=== PATIENT | female | born 1945 | race Caucasian/White ===

== ENCOUNTER → 2019-01-15 | Outpatient (CLI) | payer MEDICARE ==
[~2019-01-15] MED LIST: ACET-907 PO; ALEV220T22 PO; AMLO5TAB6 PO; ASPI81TA85 PO; ATOR1TAB21 PO; FISH1000 PO; HYDR25TAB PO; LISI10TA4 PO; MULTCAP PO; VITAD1000T PO
--- NOTE | 2019-01-15 08:31 | REP ---
Clinical: Preoperative assessment . Comparison: None . Technique: PA and lateral. Findings: The mediastinum and cardiac silhouette are normal. The lung aldrich are clear and without acute consolidation, effusion, or pneumothorax. The skeletal structures are intact and normal. Impression: 1. No acute cardiopulmonary process. Electronically Signed by Rah Mckinney MD 01/15/2019 08:22 A
[2019-01-15 08:53] LABS: HEMATOCRIT 41.4 % (36.0-47.0); HEMOGLOBIN 13.8 g/dl (12.0-15.5); MEAN CORPUSCULAR HEMOGLOBIN 30.1 pg (27.0-33.0); MEAN CORPUSCULAR HGB CONC 33.3 g/dl (32.0-36.5); MEAN CORPUSCULAR VOLUME 90.2 fl (80.0-96.0); PLATELET COUNT, AUTOMATED 238 10^3/uL (150-450); RED BLOOD COUNT 4.59 10^6/uL (4.00-5.40); WHITE BLOOD COUNT 6.6 10^3/uL (4.0-10.0)
[2019-01-15 08:58] LABS: INR 0.98; PROTHROMBIN TIME 12.7 SECONDS (11.8-14.0)
[2019-01-15 09:17] LABS: ALBUMIN 4.1 GM/DL (3.2-5.2); ALT/SGPT 22 U/L (12-78); BILIRUBIN,TOTAL 0.7 MG/DL (0.2-1.0); BLOOD UREA NITROGEN 15 MG/DL (7-18); CALCIUM LEVEL 9.6 MG/DL (8.8-10.2); CARBON DIOXIDE LEVEL 28 MEQ/L (21-32); CHLORIDE LEVEL 106 MEQ/L (98-107); CREATININE FOR GFR 0.93 MG/DL (0.55-1.30); GLOMERULAR FILTRATION RATE > 60.0 (>39); GLUCOSE, FASTING 92 MG/DL (70-100); SODIUM LEVEL 142 MEQ/L (136-145); TOTAL PROTEIN 7.1 GM/DL (6.4-8.2)
[2019-01-15 09:26] LABS: ERYTHROCYTE SEDIMENTATION RATE 5 mm/hr (0-30)
--- NOTE | 2019-01-15 11:20 | ECGEPIP ---
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
== END ==
LOC: M LAB 07:45
PROVIDERS: ATTEND Orthopaedic Surgery
DX: Z01.818 Encounter for other preprocedural examination (principal); M17.11 Unilateral primary osteoarthritis, right knee

== ENCOUNTER → 2019-03-26 | Outpatient (CLI) | payer MEDICARE ==
[~2019-03-26] MED LIST changes: +CHOL100029 PO; -VITAD1000T PO
[2019-03-26 08:34] LABS: HEMATOCRIT 42.2 % (36.0-47.0); HEMOGLOBIN 14.2 g/dl (12.0-15.5); MEAN CORPUSCULAR HEMOGLOBIN 30.2 pg (27.0-33.0); MEAN CORPUSCULAR HGB CONC 33.6 g/dl (32.0-36.5); MEAN CORPUSCULAR VOLUME 89.8 fl (80.0-96.0); PLATELET COUNT, AUTOMATED 247 10^3/uL (150-450)
[2019-03-26 08:46] LABS: ALBUMIN 4.3 GM/DL (3.2-5.2); BILIRUBIN,TOTAL 0.8 MG/DL (0.2-1.0); CALCIUM LEVEL 10.4 MG/DL (8.8-10.2); CREATININE FOR GFR 0.98 MG/DL (0.55-1.30); GLOMERULAR FILTRATION RATE 59.2 (>39); INR 0.94; POTASSIUM SERUM 4.3 MEQ/L (3.5-5.1); PROTHROMBIN TIME 12.3 SECONDS (11.8-14.0); TOTAL PROTEIN 6.7 GM/DL (6.4-8.2)
[2019-03-26 08:51] LABS: ERYTHROCYTE SEDIMENTATION RATE 4 mm/hr (0-30)
== END ==
LOC: M LAB 07:47
PROVIDERS: ATTEND Orthopaedic Surgery
DX: M17.11 Unilateral primary osteoarthritis, right knee (principal); Z79.82 Long term (current) use of aspirin

== ENCOUNTER 2019-04-15 07:21 | Inpatient (IN) | payer MEDICARE ==
--- NOTE | 2019-04-06 18:27 | HPE ---
DATE OF ADMISSION: 04/15/2019 ATTENDING PHYSICIAN: Dr. Puneet Hinkle CHIEF COMPLAINT: Right knee pain and stiffness. HISTORY: This is a pleasant 73-year-old female patient with progressively worsening right knee pain and stiffness that has failed to improve with conservative management. This affects her activities of daily living and she has consented for a right total knee arthroplasty with Dr. Puneet Hinkle. She had unfortunately had to cancel her surgery previously secondary to needing cardiac clearance. She reports that she has since seen Dr. Bliss and had a negative stress test and received clearance from him. ALLERGIES: No known drug allergies. CURRENT MEDICATIONS: - amlodipine 5 mg one by mouth daily - aspirin 81 mg one by mouth daily - atorvastatin 20 mg one by mouth daily - fish oil 1000 mg one by mouth daily - vitamin D3 2000 units one by mouth daily - Flonase two sprays per nostril daily - hydrochlorothiazide 25 mg one by mouth daily - lisinopril 10 mg one by mouth daily - multivitamin one by mouth daily - Shingrix vaccination - Zyrtec 10 mg one by mouth daily PAST MEDICAL HISTORY: 1. Allergic rhinitis. 2. Aortic stenosis. 3. Coronary artery stenosis. 4. Bilateral cataracts. 5. Right-sided congestive heart failure (CHF). 6. Hyperlipidemia. 7. Hypertension. 8. Obesity. 9. Bilateral knee osteoarthritis. 10. Osteoporosis. 11. Retinal vein occlusion. PAST SURGICAL HISTORY: Noncontributory. SOCIAL HISTORY: The patient does not smoke, has never, and does not use alcohol. FAMILY HISTORY: Father: Cancer. Mother: Hypertension and hyperlipidemia. REVIEW OF SYSTEMS: Denies fever, chills, chest pain, shortness of breath, nausea, vomiting, diarrhea. Denies any recent upper respiratory or urinary tract infection symptoms. Does report pain in the right knee. PHYSICAL EXAMINATION: VITAL SIGNS: Weight 175.2, height 5 feet, 3 inches, temperature 98.4, pulse 79, respirations 12, blood pressure 140/70. Normocephalic, atraumatic. Neck is supple and nontender with no lymphadenopathy or jugular venous distention (JVD). S1 and S2 auscultated. LUNGS: Clear to auscultation bilaterally with no wheezes, rales, rhonchi. ABDOMEN: Soft, nontender. Examination of the right knee reveals intact overlying skin, intact range of motion, tenderness to palpation about the medial aspect. The right lower extremity is well-perfused and has intact neurovascular status. LABORATORY DATA: White count 8, red count 4.7, hemoglobin 14.2, hematocrit 42.2. BUN 20, creatinine 0.98, PT 12.3, INR 0.94. Chest x-ray with no acute cardiopulmonary process. EKG: Sinus rhythm. Medical optimization performed by Dr. Nance, reviewed today on chart. Cardiac optimization and risk stratification performed by Dr. Fischer and reviewed today on chart. IMPRESSION: Symptomatic right knee degenerative changes. PLAN: Consented for a right total knee arthroplasty with Dr. Puneet Hinkle.
[2019-04-15] VITALS (7 sets, daily range): BP systolic 132–148; BP diastolic 68–77
[~2019-04-15] VITALS: Ht 157.5 cm; Wt 78.0 kg
[~2019-04-15 07:21] MED LIST changes: +LR 1,000 ML IV ONE; +ceFAZolin SOD 2 GM in IV 1 EA IV ONE
[2019-04-15] MEDS ORDERED: fentaNYL 100 MCG/2 ML INJECTION (J3010) As Ordered ONE ×2 (08:41→08:55)
[2019-04-15] MEDS ORDERED: MIDAZOLAM INJ 2 MG/2 ML VIAL (J2250) As Ordered ONE ×3 (08:41→10:14)
[2019-04-15] MEDS ORDERED: ONDANSETRON 4MG/2ML VIAL (J2405) As Ordered ONE (08:55)
[2019-04-15] MEDS ORDERED: LIDOCAINE 2% INJ 100 MG/5 ML SDV (FOR ANES.) As Ordered ONE (08:55)
[2019-04-15] MEDS ORDERED: dexameTHASONE 4 MG/ML 1ML VIAL (J1100) As Ordered ONE (08:55)
[2019-04-15] MEDS ORDERED: propofoL 500 MG/50 ML VIAL As Ordered ONE (08:55)
[2019-04-15] MEDS ORDERED: fentaNYL 100 MCG/2 ML INJECTION (J3010) IV ONE (09:30)
[2019-04-15] MEDS ORDERED: MIDAZOLAM INJ 2 MG/2 ML VIAL (J2250) IV ONE (09:30)
--- NOTE | 2019-04-15 09:34 | IPN ---
DATE: 04/15/2019 Patient seen and examined. She wished to go ahead with a right knee arthroplasty. She understands the nature of this, the risks of bleeding, infection, damage to nerves, vessels, persistent pain, wear loosening, blood clots, medical problem, , among others. Plan to proceed with a right knee arthroplasty. Preoperative clearance was obtained.
[2019-04-15] MEDS ORDERED: TRANEXAMIC ACID 100 MG/ML 10ML VIAL As Ordered ONE (09:51)
[2019-04-15] MEDS ORDERED: BUPIVACAINE LIPOSOME/PF 1.3% 20ML VIAL (13.3MG/ML)(EXPAREL)(C9290 PER1MG) As Ordered ONE (09:52)
[2019-04-15] MEDS ORDERED: EPINEPHrine INJ 1 MG/ML 1ML VIAL As Ordered ONE (09:52)
[2019-04-15] MEDS ORDERED: ceFAZolin 1GM INJ (J0690 PER 500MG) As Ordered ONE (09:52)
[2019-04-15] MEDS ORDERED: ROPIvacaine 0.5% 30 ML INJECTION (J2795 PER 1MG) ONE (11:04)
[2019-04-15] MEDS ORDERED: dexameTHASONE 10 MG/1 ML VIAL PRES.FREE (J1100) ONE (11:04)
[2019-04-15] MEDS ORDERED: PERCOCET 5MG/325MG TAB As Ordered ONE (12:53)
[2019-04-15] MEDS ORDERED: fentaNYL 100 MCG/2 ML INJECTION (J3010) IV PRN (13:00)
[2019-04-15] MEDS ORDERED: LR 1,000 ML IV SCH ×2 (13:00→14:00)
[2019-04-15] MEDS ORDERED: ONDANSETRON 4MG/2ML VIAL (J2405) IV PRN ×2 (13:00→14:00)
[2019-04-15] MEDS ORDERED: PERCOCET 5MG/325MG TAB PO PRN (13:00)
--- NOTE | 2019-04-15 13:02 | REP ---
RIGHT KNEE, TWO VIEWS: Two views of the right knee performed. There is a total knee prosthesis in good position. Osseous structures are intact and well aligned. Metallic skin haven are seen anteriorly. Electronically Signed by Guido Prasad MD 04/15/2019 05:55 P
--- NOTE | 2019-04-15 13:03 | RO ---
DATE OF PROCEDURE: 04/15/2019 PREOPERATIVE DIAGNOSIS: Right knee osteoarthritis. POSTOPERATIVE DIAGNOSIS: Right knee osteoarthritis. PROCEDURE: Right total knee arthroplasty using Attune rotating platform posterior stabilized size 5 femur, size 5 tibia, 10 mm thick polyethylene, 35 patellar button. SURGEON: Puneet Hinkle MD MOLDER APPRENTICE: ERICA Coreas ANESTHESIA: Spinal. ESTIMATED BLOOD LOSS (EBL): Less than 50. COMPLICATIONS: None. INDICATIONS: This is a 73-year-old woman who has had gradually worsening right knee pain. She wished to go ahead with surgical treatment. She understood the nature of this, the risks associated with it. DESCRIPTION OF PROCEDURE: The patient was taken to the operating room and placed in supine position after spinal anesthesia was induced. The right lower extremity was prepped and draped in the usual sterile fashion. Time-out was performed. Tourniquet was inflated and a longitudinal incision was made over the anterior aspect of the right knee. A medial parapatellar arthrotomy was performed per routine. Everted the patella. Flexed the knee up. Removed some osteophytes from the femur. Used the canal initiating reamer followed by the intramedullary guide set at 5 degrees of valgus and a 9 mm cut. This fit very nicely on the condyles. This was pinned in place and the distal femoral cut was made protecting soft tissues. I then sized the femur having freed up soft tissue on the anterior aspect of the distal femur and sized it to be a 5. The drill holes were placed in the end of the femur. It was noted that her bone was quite soft throughout the procedure. The size 5 cutting block was then secured. The remaining cuts were made in the usual fashion. I then prepared the tibial surface. Tibial retractors were placed. The tibial alignment guide was then secured to 4 mm off the medial side, which was the low side. It was dialed in the appropriate amount of valgus and posterior slope. This was pinned in place and the proximal tibia cut was made. I then used the cutting block for this box as I anticipated using a posterior stabilizer due to her significant arthritis and her subluxation of her tibia on her femur, and the cutting block was secured. The remaining three cuts were made and the bone was removed along with any remaining posterior cruciate ligament (PCL) with cautery. Care was taken to protect soft tissues. I then used the color printer operator to remove soft tissue and osteophytes from either side of the knee and a spacer block was then used for a trial and was choosing between the size 10 and 12, but was most happy with the size 10. I then prepared the tibial surface. A size 5 cutting tray was then placed, secured, drilled, broached and the trial components were used, and once I placed the trial components I was much more pleased with the size 10 polyethylene. She had excellent stability in flexion and extension. Excellent alignment noted and the components fit very well. I then freehand cut the patella removing about 6 mm of bone because her patella was relatively thin. Drilled holes for a 35 button and placed the trial button. I did have to do a mild lateral release due to some subtle tracking issues. Drill holes were placed in the end of the femur. Again, I was very pleased with soft tissue balance and range of motion of the knee. The trial components removed. I placed Exparel in the deep tissues, irrigated copiously and cemented on the tibial surface after drying carefully. Cemented in the femoral component and the polyethylene was then inserted and brought the knee out in extension. I made sure all the excess bone cement was removed. I then cemented on the patella, held in place with a clamp, removed excess bone cement. Irrigated again copiously. Placed the tranexamic acid (TXA) deep in the wound. Once the cement had hardened, I removed the patellar clamp and we closed the deep layer with interrupted #1 Vicryl suture and running Stratafix suture. Excellent watertight closure was noted. I then again irrigated, closed the subcu with #2-0 Vicryl and the skin with haven. Tourniquet was deflated, and she was taken to recovery room in stable condition. There were no known complications. The plan will be routine postop. The magistrate assistant was instrumental in holding retractors and assisting in flex and extending the knee for exposure, assisting in mixing the bone cement, assisting in wound closure. The bone cement had been mixed near the end of the procedure by the magistrate assistant in the usual fashion.
[2019-04-15] MEDS ORDERED: ACETAMINOPHEN TAB 650MG DOSE (2X325MG) PO PRN (14:00)
[2019-04-15] MEDS ORDERED: FLEET ENEMA PR PRN (14:00)
[2019-04-15] MEDS ORDERED: MORPHINE 4 MG/ML 1ML VIAL/SYRINGE (J2270) IV PRN ×2 (14:00)
--- NOTE | 2019-04-15 14:21 | CR.PDOC ---
General Date of Consultation: Apr 15, 2019 Referring Provider: Puneet Hinkle Attending Physician: OLE AQUINO MD Consultation REASON FOR CONSULTATION/CHIEF COMPLAINT: Hypertensive management, status post right knee arthroplasty HISTORY OF PRESENT ILLNESS: Patient is a 73-year-old female with past medical history significant for aortic stenosis, coronary artery disease, congestive heart failure with diastolic dysfunction, hypertension, and hyperlipidemia who presented for an elective right knee arthroplasty. Patient had been treated conservatively outpatient for right knee pain. However, had continued pain and was seen for right knee arthroplasty today. Patient is currently status post right knee arthroplasty. She states that her pain is well-controlled. There were no adverse events reported during her surgery. The patient's blood pressure remained normotensive. She states that she has a history of hypertension as well as aortic stenosis. Patient denies any history of obstructive sleep apnea. She states that she is compliant with her medications. She currently denies any chest pain, shortness of breath, nausea, vomiting, diarrhea or constipation. ALLERGIES: Please see below. HOME MEDICATIONS: Please see below. PAST MEDICAL HISTORY: 1., Hypertension. 2., Aortic stenosis. 3. Coronary artery disease. 4. Bilateral cataracts. 5. Congestive heart failure with diastolic dysfunction. 6. Hyperlipidemia. Unclear whether pure or mixed. 7. Obesity. 8. Bilateral knee osteoarthritis 9. Osteoporosis. 10. History of a retinal vein occlusion PAST SURGICAL HISTORY: 1. Right knee arthroplasty performed today FAMILY HISTORY: Patient has a daughter who was diagnosed and treated for breast cancer. She has a son who was diagnosed with pancreatic cancer. She has a family history positive for hypertension SOCIAL HISTORY: Patient denies any current or past tobacco use. She denies any IV drug use. She denies any chronic alcohol use. REVIEW OF SYSTEMS: CONSTITUTIONAL: Patient denies any fevers, chills, unintentional weight loss or weight gain or night sweats.. She admits to good appetite HEENT:, Patient admits to a history of allergic rhinitis. She admits to Difficulty in her vision secondary to cataracts. . She denies any dysphasia CARDIOVASCULAR:. Patient denies any chest pain, palpitations or feelings of h eart racing. RESPIRATORY:. Patient denies any shortness of breath. She has any cough, wheezing. GENITOURINARY: Patient denies any dysuria, increased frequency or urgency. MUSCULOSKELETAL:. Patient admits to chronic bilateral knee osteoarthritis. GASTROINTESTINAL:. Patient has any constipation, diarrhea, nausea, vomiting. SKIN:. She denies any rash or lesions. She denies any pruritus. NEUROLOGICAL:. Patient denies any ataxia or gait issues. She denies any slurring of her speech. PSYCHIATRIC: Patient denies any history of depression or anxiety. ENDOCRINE: Patient denies any history of diabetes. She denies any heat intolerance or cold intolerance. HEMATOLOGIC/LYMPHATIC: Patient denies any history of deep vein thrombosis or pulmonary embolism. She denies any history of easy bruising or bleeding. ALLERGIC/IMMUNOLOGIC:. Patient admits to a history of allergic rhinitis PHYSICAL EXAMINATION: VITAL SIGNS: Please see below. GENERAL APPEARANCE:. Patient is awake, alert and oriented. She is lying in bed, accompanied by her family. She appears no acute distress. She is pleasant and conversive. HEENT: Atraumatic, normocephalic. Eyes are nonicteric. Trachea is midline. Neck is somewhat randolph. Mallampati 3-4 RESPIRATORY: Clear vesicular breath sounds bilaterally. Slightly diminished in the bases with mild fine crackles. Good respiratory effort. No wheezes, rhonchi or rales CARDIOVASCULAR: Normal S1, S2, regular rate and rhythm, 2/6 systolic ejection murmur with radiation to the carotids. No clicks or rubs. ABDOMEN:. Obese, soft, nondistended. Negative fluid wave or shift. No tenderness to palpation in all 4 quadrants. No rebound tenderness or guarding. Normoactive bowel sounds. EXTREMITIES:. Trace bilateral edema. Full and equal pulses in upper and lower extremities bilaterally. Right knee bandaged. NEUROLOGICAL: No focal neurological deficits. PSYCHIATRIC:. Mood and affect appear appropriate. LABORATORY DATA: Please see below. ASSESSMENT/PLAN: 1., Status post right knee arthroplasty -Patient is currently status post right knee arthroplasty. She is being managed by orthopedic surgery. Pain control and anticoagulation has been ordered through orthopedic surgery. 2. Hypertension -Patient is currently fairly normotensive likely secondary to anesthesia. At home the patient takes amlodipine 5 mg by mouth daily, hydrochlorothiazide 25 mg by mouth daily and lisinopril 10 mg by mouth daily. -Will hold patient's antihypertensive medications and likely resume tomorrow. If patient becomes hypertensive before tomorrow morning plan to administer her home medications and follow up on her blood pressure. 3. Hyperlipidemia -Patient is currently on atorvastatin 20 mg by mouth every night. Will continue this medication 4. Osteoporosis -Patient is currently taking vitamin D 2000 units by mouth daily. Will continue 5. DVT prophylaxis -Currently managed by Orthopedic Surgery -Patient is on 10mg of Xarelto and TEDs/Sequentials I performed a history and physical examination of the patient and discussed their management with the above documenter. I reviewed the note and agree with the documented findings and plan of care. Vital Signs/I&O Vital Signs Date Time Temp Pulse Resp B/P (MAP) Pulse Ox O2 Delivery O2 Flow Rate FiO2 04/15/19 13:10 97.7 72 17 146/77 (100) 96 04/15/19 09:45 2 Allergies Coded Allergies: No Known Allergies (Unverified , 04/05/19) Home Medications Scheduled Amlodipine Besylate (Amlodipine Besylate) 5 Mg Tablet, 5 MG PO DAILY, (Reported) Atorvastatin Calcium (Atorvastatin Calcium) 20 Mg Tablet, 20 MG PO QPM, (Reported) Hydrochlorothiazide (Hydrochlorothiazide) 25 Mg Tablet, 25 MG PO DAILY, (Reported) Lisinopril (Lisinopril) 10 Mg Tablet, 10 MG PO DAILY, (Reported) Multivitamin (Multivitamins) 1 Each Capsule, 1 CAP PO DAILY, (Reported) [place]-3 Fatty Acids/Fish Oil (Fish Oil 1,000 mg Capsule) 1 Each Capsule, 1,000 MG PO DAILY, (Reported) Rivaroxaban (Xarelto) 10 Mg Tablet, 10 MG PO DAILY for 12 Days, #12 Vitamin D (Vitamin D3) 1,000 Unit Tablet, 2,000 UNITS PO DAILY, (Reported) Scheduled PRN Acetaminophen (Tylenol) 325 Mg Tablet, 325 MG PO PRN PRN for PAIN, (Reported) Oxycodone HCl/Acetaminophen (Percocet 5-325 mg Tablet) 1 Each Tablet, 1 TAB PO Q4H PRN for PAIN, #30 YESENIA LOPEZ DO Apr 15, 2019 14:21 OLE AQUINO MD Apr 18, 2019 11:29
[2019-04-15] MEDS: VITAMIN D 1,000 INTERNATIONAL UNITS TABLET PO SCH (15:18)
[2019-04-15] MEDS: ceFAZolin SOD 2 GM in IV 1 EA IV SCH (18:17)
[2019-04-15] MEDS: NORCO, ANEXSIA 5/325MG TABLET (HYDROcodone/ACETAMINOPHEN) PO PRN (20:32)
[2019-04-15] MEDS ORDERED: ATORVASTATIN 20 MG TAB PO SCH (21:00)
[2019-04-16] MEDS: ceFAZolin SOD 2 GM in IV 1 EA IV SCH (03:04)
[2019-04-16] MEDS: NORCO, ANEXSIA 5/325MG TABLET (HYDROcodone/ACETAMINOPHEN) PO PRN ×2 (03:05→09:22)
[2019-04-16 06:03] VITALS: BP 129/64
[2019-04-16 06:12] LABS: HEMATOCRIT 33.6 % (36.0-47.0); HEMOGLOBIN 11.6 g/dl (12.0-15.5); MEAN CORPUSCULAR HEMOGLOBIN 30.1 pg (27.0-33.0); MEAN CORPUSCULAR HGB CONC 34.5 g/dl (32.0-36.5); PLATELET COUNT, AUTOMATED 256 10^3/uL (150-450); RED BLOOD COUNT 3.86 10^6/uL (4.00-5.40); WHITE BLOOD COUNT 14.5 10^3/uL (4.0-10.0)
[2019-04-16 06:43] LABS: BLOOD UREA NITROGEN 15 MG/DL (7-18); CALCIUM LEVEL 9.1 MG/DL (8.8-10.2); CARBON DIOXIDE LEVEL 27 MEQ/L (21-32); CHLORIDE LEVEL 104 MEQ/L (98-107); CREATININE FOR GFR 0.94 MG/DL (0.55-1.30); GLOMERULAR FILTRATION RATE > 60.0 (>39); GLUCOSE, FASTING 122 MG/DL (70-100); SODIUM LEVEL 138 MEQ/L (136-145)
[2019-04-16] MEDS ORDERED: PERC5TAB12 PO (06:49)
[2019-04-16] MEDS ORDERED: XARE10TA PO (06:49)
[2019-04-16] MEDS ORDERED: SENOKOT S TAB PO SCH (09:00)
[2019-04-16] MEDS ORDERED: PREVNAR 13 VACCINE SYRINGE (CPT CODE:90670) IM ONE (09:00)
[2019-04-16] MEDS ORDERED: MOM 30ML SUSPENSION UDC PO SCH (09:00)
[2019-04-16] MEDS ORDERED: MIRALAX *UNIT DOSE* 17GM PACKET PO SCH (09:00)
[2019-04-16] MEDS: VITAMIN D 1,000 INTERNATIONAL UNITS TABLET PO SCH (09:21)
[2019-04-16] MEDS ORDERED: RIVAROXABAN 10 MG TAB (XARELTO) PO SCH (18:00)
--- NOTE | 2019-04-19 10:08 | DSES ---
DATE OF ADMISSION: 04/15/2019 DATE OF DISCHARGE: 04/16/2019 ATTENDING PHYSICIAN: Dr. Puneet Hinkle. ADMISSION DIAGNOSIS: Right knee pain and stiffness. OTHER DIAGNOSES: 1. Allergic rhinitis. 2. Aortic stenosis. 3. Coronary artery stenosis. 4. Bilateral cataracts. 5. Right-sided congestive heart failure. 6. Hyperlipidemia. 7. Hypertension. 8. Obesity. 9. Osteoporosis. 10. Retinal vein occlusion DISCHARGE DIAGNOSIS: Right knee pain and stiffness status post right total knee arthroplasty. HISTORY: The patient is a 73-year-old female with progressively worsening right knee pain and stiffness. She failed to improve with conservative measures. She continued to have symptoms with weightbearing activities and activities of daily living. She consented for an elective right total knee arthroplasty with Dr. Hinkle for her continued symptoms. OPERATION PERFORMED: Right total knee arthroplasty. HOSPITAL COURSE: The patient underwent a right total knee arthroplasty under spinal anesthesia which was uneventful. Her hospital course was without complication and she was up with physical therapy per their protocol weightbearing as tolerated on the right lower extremity. The patient was discharged on oral pain medications and will resume her preoperative medications and diet. The patient will take her anticoagulant and use her thromboembolic deterrent stockings as directed postoperatively to prevent deep venous thrombosis. The patient will follow up in our office in 12-14 days for wound check and staple removal. She is encouraged to contact our office sooner if there is any increase in pain, redness, drainage, numbness or tingling in the extremity, fever greater than 101 degrees or any other concerns. Please see the medical record for additional details. DANII
== END 2019-04-16 11:45 | disposition home or self-care (01) | DRG 470 ==
LOC: M OR 07:21 → M MS5PR 13:10
PROVIDERS: ADMIT Orthopaedic Surgery; ATTEND Orthopaedic Surgery
PROC: 0SRC0J9 Replacement of Right Knee Joint with Synthetic Substitute, Cemented, Open Approach (ICD-10-PCS; principal; 2019-04-15 09:40)
DX: M17.0 Bilateral primary osteoarthritis of knee (principal); I50.32 Chronic diastolic (congestive) heart failure; J30.9 Allergic rhinitis, unspecified; I35.0 Nonrheumatic aortic (valve) stenosis; I25.10 Atherosclerotic heart disease of native coronary artery without angina pectoris; I50.812 Chronic right heart failure; E78.5 Hyperlipidemia, unspecified; E66.9 Obesity, unspecified; I11.0 Hypertensive heart disease with heart failure; M81.0 Age-related osteoporosis without current pathological fracture; Z79.82 Long term (current) use of aspirin; Z79.899 Other long term (current) drug therapy; Z68.31 Body mass index [BMI] 31.0-31.9, adult

== ENCOUNTER → 2020-01-04 | Outpatient (CLI) | payer MEDICARE ==
[~2020-01-04] MED LIST changes: +ECOT81TA5 PO; -LR 1,000 ML IV ONE; +PERC5TAB12 PO; +XARE10TA PO; -ceFAZolin SOD 2 GM in IV 1 EA IV ONE
[2020-01-04 10:47] LABS: HEMATOCRIT 42.3 % (36.0-47.0); HEMOGLOBIN 14.1 g/dl (12.0-15.5); MEAN CORPUSCULAR HEMOGLOBIN 29.1 pg (27.0-33.0); MEAN CORPUSCULAR HGB CONC 33.3 g/dl (32.0-36.5); MEAN CORPUSCULAR VOLUME 87.4 fl (80.0-96.0); PLATELET COUNT, AUTOMATED 260 10^3/uL (150-450); RED BLOOD COUNT 4.84 10^6/uL (4.00-5.40); WHITE BLOOD COUNT 7.8 10^3/uL (4.0-10.0)
[2020-01-04 11:03] LABS: INR 0.98; PROTHROMBIN TIME 12.7 SECONDS (11.8-14.0)
[2020-01-04 11:18] LABS: ALBUMIN 4.1 GM/DL (3.2-5.2); ALT/SGPT 26 U/L (12-78); BILIRUBIN,TOTAL 0.7 MG/DL (0.2-1.0); BLOOD UREA NITROGEN 19 MG/DL (7-18); CALCIUM LEVEL 9.9 MG/DL (8.8-10.2); CARBON DIOXIDE LEVEL 29 MEQ/L (21-32); CHLORIDE LEVEL 107 MEQ/L (98-107); CREATININE FOR GFR 0.96 MG/DL (0.55-1.30); GLOMERULAR FILTRATION RATE > 60.0 (>39); GLUCOSE, FASTING 139 MG/DL (70-100); POTASSIUM SERUM 3.7 MEQ/L (3.5-5.1); SODIUM LEVEL 139 MEQ/L (136-145); TOTAL PROTEIN 7.1 GM/DL (6.4-8.2)
[2020-01-04 11:59] LABS: ERYTHROCYTE SEDIMENTATION RATE 4 mm/hr (0-30)
--- NOTE | 2020-01-04 13:26 | REP ---
Chest x-ray: Two views. History: Left knee osteoarthritis. Comparison radiographs are from January 15, 2019. Findings: The lungs are well inflated and clear. The pleural angles are sharp. Heart size is normal. The thoracic aorta somewhat tortuous. There are mild degenerative changes in the thoracic spine. There is moderate osteoarthritis affecting the shoulders bilaterally in the glenohumeral joints. Impression: No active cardiopulmonary disease. Electronically Signed by Andrew Sepulveda MD 01/04/2020 01:17 P
--- NOTE | 2020-01-06 18:26 | ECGEPIP ---
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 PVCs are new. Electronically Signed on 01-06-2020 18:26:33 EDT by Travis Sellers
== END ==
LOC: M LAB 10:03
PROVIDERS: ATTEND Orthopaedic Surgery
DX: M17.12 Unilateral primary osteoarthritis, left knee (principal); M51.34 Other intervertebral disc degeneration, thoracic region; M19.011 Primary osteoarthritis, right shoulder; M19.012 Primary osteoarthritis, left shoulder

== ENCOUNTER → 2020-01-09 | Outpatient (CLI) | payer MEDICARE | LOC: M LABSMTC 09:40 | PROVIDERS: ATTEND Anesthesiology | DX: Z01.818 Encounter for other preprocedural examination (principal); Z11.59 Encounter for screening for other viral diseases ==

== ENCOUNTER 2020-01-12 08:50 | Inpatient (IN) | payer MEDICARE ==
--- NOTE | 2020-01-11 10:38 | HPE ---
DATE OF ADMISSION: 01/12/2020 CHIEF COMPLAINT: Left knee pain. HISTORY OF PRESENT ILLNESS: Lizeth is a pleasant 74-year-old female with progressively worsening left knee pain and stiffness. She has failed to improve with conservative treatment. She has elected for surgery for her continued symptoms. She has pain with weightbearing activities and her activities of daily living. X-rays of her knee are notable for advanced osteoarthritis of the left knee joint. She has consented for a left total knee arthroplasty by Dr. Puneet Hinkle. Medical optimization was performed by Dr. Nance. ALLERGIES: NONE. CURRENT MEDICATIONS: - lisinopril 10 mg once a day - amlodipine 5 mg once a day - hydrochlorothiazide 25 mg a day - atorvastatin 20 mg at bedtime - vitamin D3 2000 units a day - multivitamin - Tylenol or Aleve as needed - baby aspirin once a day PAST MEDICAL HISTORY: Includes hypertension and hyperlipidemia. PAST SURGICAL HISTORY: Includes right total knee arthroplasty. SOCIAL HISTORY: She is retired. She does not smoke and does not drink alcohol. FAMILY HISTORY: Noncontributory. REVIEW OF SYSTEMS: The patient denies chest pain, heart palpitations, cough, wheezing, difficulty breathing and shortness of breath. She denies abdominal pain, nausea, vomiting, diarrhea or constipation. She denies recent upper respiratory infection or urinary tract infection symptoms. She does complain of persistent pain in the left knee. PHYSICAL EXAMINATION: General: She is a well-developed, well-nourished, in no acute distress, alert female. She walks with a moderate limp favoring her left lower extremity. She is not using assistive devices. Vital Signs: She is 63 inches tall, weighs 175 pounds with a temperature of 97.1, pulse of 60, respirations of 20, blood pressure 130/75. Neck was supple without adenopathy or jugular venous distension. No carotid bruits appreciated. Lungs were clear to auscultation without rales or wheeze. Heart: Regular rate and rhythm. Abdomen: Bowel sounds are present. Extremities: Examination of the knee revealed intact skin. She had decreased range of motion due to pain and stiffness. The limb is neurovascularly intact. LABORATORY DATA: ProTime 12.7, INR 0.98. Glucose 139. BUN 19, creatinine 0.96. Sodium 139, potassium 3.7. Complete blood count (CBC) was within normal limits with a sed rate of 4. EKG showed sinus rhythm with frequent ectopic premature complexes at 90 beats per minute. Chest x-ray showed no acute cardiopulmonary disease processes. Symptomatic osteoarthritis of the left knee joint. PLAN: Consented for a left total knee arthroplasty by Dr. Puneet Hinkle.
[2020-01-12] VITALS (7 sets, daily range): BP systolic 130–146; BP diastolic 64–81
[~2020-01-12] VITALS: Ht 160 cm; Wt 78.8 kg
[~2020-01-12 08:50] MED LIST changes: -ECOT81TA5 PO; +LR 1,000 ML IV ONE; +ceFAZolin SOD 2 GM in IV 1 EA IV ONE
[2020-01-12] MEDS ORDERED: ECOT81TA5 PO (09:44)
[2020-01-12] MEDS ORDERED: TRANEXAMIC ACID 100 MG/ML 10ML VIAL As Ordered ONE (10:31)
[2020-01-12] MEDS ORDERED: ceFAZolin 1GM VIAL (J0690 PER 500MG) As Ordered ONE (10:31)
[2020-01-12] MEDS ORDERED: EPINEPHrine INJ 1 MG/ML 1ML AMP As Ordered ONE (10:32)
[2020-01-12] MEDS ORDERED: BUPIVACAINE LIPOSOME/PF 1.3% 20ML VIAL (13.3MG/ML)(EXPAREL)(C9290 PER1MG) As Ordered ONE (10:32)
[2020-01-12] MEDS ORDERED: MIDAZOLAM INJ 2MG/2ML VIAL (J2250 PER 1MG) As Ordered ONE (11:03)
[2020-01-12] MEDS ORDERED: fentaNYL 100 MCG/2 ML INJECTION (J3010) As Ordered ONE (11:03)
--- NOTE | 2020-01-12 11:35 | CR ---
DATE OF CONSULTATION: 01/12/2020 Lizeth Duvall is seen preoperatively. She I having a left knee replacement. She had her preoperative optimization evaluation done by Lora Dudley NP, who is her primary care provider in Dr. Naomy Nance's office in [place]. The patient has a medical history significant for aortic stenosis, carotid artery disease, chronic right-sided congestive heart failure, hypertensive heart disease, hyperlipidemia, allergic rhinitis. 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 I did find a preoperative cardiac optimization dictated subsequently. MEDICATIONS: - amlodipine 5 mg daily - aspirin 81 mg daily - atorvastatin 20 mg daily - some fish oil - some vitamin D - hydrochlorothiazide 25 mg daily - lisinopril 10 mg - Zyrtec SOCIAL HISTORY: Nonsmoker. Rare alcohol use. ALLERGIES: Unknown. REVIEW OF SYSTEMS: No epistaxis, rectal bleeding, urinary bleeding, chest pain, shortness of breath, cough, wheeze, fever, chills. Last bowel movement was yesterday. PHYSICAL EXAMINATION: Per flow sheet. General appearance: Alert, conversant, in no distress. HEENT: Unremarkable. No jugular venous distention (JVD). Lungs clear. Heart: Regular rate and rhythm. 1/6 systolic ejection murmur. Abdomen: Soft, nontender, no masses. PREOPERATIVE TESTING: She had a nuclear stress test 03/01 by [facility], Dr. Fischer. This was reviewed. It showed an ejection fraction of 69%. Normal left ventricular contractility. Small perfusion defect in the apex suggesting prior infarction. Medical management was advised. Echocardiogram done 10/19/2017 showed normal left atrial size. Ejection fraction 65%. Mild aortic stenosis with a peak gradient of only 18 mm. Aortic valve area 1.7 sq cm. Carotid ultrasound was done on 06/08/2019. It actually did not show any significant stenosis, less than 50% bilaterally. IMPRESSION: 1. Hypertensive heart disease. Blood pressure is well controlled. Her lisinopril and hydrochlorothiazide are on hold and should be held until her blood pressure recovers postoperatively. 2. Hyperlipidemia. Restart atorvastatin 20 mg daily postoperatively. Would recommend stopping the fish oil, which has cardiovascular events (dictation cut off) bleeding complications on anticoagulant and should be taken postoperatively. 3. Coronary artery disease, asymptomatic based on nuclear stress test as summarized above. Now she has been cleared by cardiology and is not felt to need beta valente therapy. 4. Minimal aortic stenosis without any obstruction. The hospitalist service will follow the patient postoperatively.
[2020-01-12] MEDS ORDERED: propofoL 200 MG/20 ML VIAL As Ordered ONE (11:58)
[2020-01-12] MEDS ORDERED: LIDOCAINE 2% 100MG/5ML SDV (FOR ANES.) As Ordered ONE (11:58)
[2020-01-12] MEDS ORDERED: MIDAZOLAM INJ 2MG/2ML VIAL (J2250 PER 1MG) IV ONE (12:00)
[2020-01-12] MEDS ORDERED: fentaNYL 100 MCG/2 ML INJECTION (J3010) IV ONE (12:00)
--- NOTE | 2020-01-12 12:10 | IPN ---
DATE: 01/12/2020 The patient seen and examined. She wished to have left total knee arthroplasty. She had done to the right side in April. She understands the nature of the procedure, the risks of bleeding, infection, damage to nerves, vessels, persistent pain, wear, loosening, blood clots, medical problems, among others. She wishes to proceed. Preop medical clearance was obtained.
[2020-01-12] MEDS ORDERED: oxyCODONE 5MG TAB PO PRN (14:15)
[2020-01-12] MEDS ORDERED: ONDANSETRON 4MG/2ML VIAL IV PRN ×2 (14:15→14:30)
[2020-01-12] MEDS ORDERED: fentaNYL 100 MCG/2 ML INJECTION (J3010) IV PRN (14:15)
[2020-01-12] MEDS ORDERED: ACETAMINOPHEN TAB 650MG DOSE (2X325MG) PO PRN (14:15)
[2020-01-12] MEDS ORDERED: LR 1,000 ML IV SCH (14:15)
[2020-01-12] MEDS ORDERED: MORPHINE 4 MG/ML 1ML VIAL/SYRINGE (J2270) IV PRN (14:30)
[2020-01-12] MEDS ORDERED: MORPHINE 2 MG/ML 1ML VIAL (J2270) IV PRN (14:30)
--- NOTE | 2020-01-12 14:38 | REP ---
Clinical: Status post knee replacement. Technique portable AP and cross-table lateral views. Findings: The patient is status post left knee replacement with normal positioning and appearance to the femoral and tibial components. Overlying postsurgical changes appreciated. Impression: Status post left knee replacement. Electronically Signed by Rah Mckinney MD 01/12/2020 02:30 P
[2020-01-12] MEDS: LR 1,000 ML IV SCH (16:20)
[2020-01-12] MEDS: PERCOCET 5MG/325MG TAB PO PRN (20:34)
[2020-01-12] MEDS: ceFAZolin SOD 2 GM in IV 1 EA IV SCH (20:34)
[2020-01-13 02:00] VITALS: BP 114/55
[2020-01-13] MEDS: LR 1,000 ML IV SCH (04:33)
[2020-01-13] MEDS: ceFAZolin SOD 2 GM in IV 1 EA IV SCH (05:04)
[2020-01-13 06:00] VITALS: BP 127/67
[2020-01-13] MEDS: PERCOCET 5MG/325MG TAB PO PRN ×2 (06:20→12:32)
[2020-01-13] MEDS ORDERED: PERC5TAB12 PO (06:24)
[2020-01-13] MEDS ORDERED: XARE10TA PO (06:24)
[2020-01-13 06:52] LABS: HEMATOCRIT 34.2 % (36.0-47.0); HEMOGLOBIN 11.7 g/dl (12.0-15.5); MEAN CORPUSCULAR HEMOGLOBIN 29.5 pg (27.0-33.0); MEAN CORPUSCULAR HGB CONC 34.2 g/dl (32.0-36.5); MEAN CORPUSCULAR VOLUME 86.4 fl (80.0-96.0); PLATELET COUNT, AUTOMATED 231 10^3/uL (150-450); RED BLOOD COUNT 3.96 10^6/uL (4.00-5.40); WHITE BLOOD COUNT 12.8 10^3/uL (4.0-10.0)
[2020-01-13 08:42] VITALS: BP 122/62
[2020-01-13] MEDS ORDERED: MOM 30ML SUSPENSION UDC PO SCH (09:00)
[2020-01-13] MEDS ORDERED: MIRALAX *UNIT DOSE* 17GM PACKET PO SCH (09:00)
[2020-01-13] MEDS ORDERED: PREVNAR 13 VACCINE SYRINGE (CPT CODE:90670) IM ONE (11:00)
[2020-01-13 11:16] VITALS: BP 126/62
[2020-01-13 11:26] VITALS: BP 126/62
--- NOTE | 2020-01-13 12:33 | IPNPDOC ---
Text Note Date of Service The patient was seen on 01/13/20. NOTE Subjective: Patient was seen and examined at the bedside. Patient denies chest pain, shortness of breath or palpitations. They have not expensively, nausea, vomitin g, abdominal pain or urinary discomfort. They do report ability to pass gas. They have not yet had a bowel movement. Objective: Vitals (See below) General: Lying in bed, appears comfortable, AAOx3 HEENT: NC, AT CVS: +S1S2 Lungs: Fair air entry b/l, -w/r/r Abdomen: Soft, ND, NT Extremities: - Edema, - Calf tenderness Assessment and plan: Elective left knee arthroplasty - Pain control, anticoagulation and physical therapy at the direction of or thopedic surgery HTN - BP remains well controlled - c/w Lisinopril / HCTZ DLP - c/w Atorvastatin CAD - Will have outpatient follow up with Primary care provider DVT prophylaxis - As per orthopedic surgery VS,Fishbone, I+O VS, Fishbone, I+O Laboratory Tests 01/13/20 06:04 Vital Signs Date Time Temp Pulse Resp B/P (MAP) Pulse Ox O2 Delivery O2 Flow Rate FiO2 01/13/20 11:26 98.1 78 18 126/62 (83) 98 Room Air 01/12/20 14:15 2 I&O- Last 24 Hours up to 6 AM 01/13/20 06:00 Intake Total 2069 ml Output Total 50 ml Balance 2019 ml LYLE LOWE MD Jan 13, 2020 12:33
[2020-01-13] MEDS ORDERED: RIVAROXABAN 10 MG TAB (XARELTO) PO SCH (18:00)
== END 2020-01-13 13:20 | disposition home or self-care (01) | DRG 470 ==
LOC: M OR 08:50 → M MS5PR 15:28
PROVIDERS: ADMIT Orthopaedic Surgery; ATTEND Orthopaedic Surgery
PROC: 0SRD0J9 Replacement of Left Knee Joint with Synthetic Substitute, Cemented, Open Approach (ICD-10-PCS; principal; 2020-01-12 11:40)
DX: M17.12 Unilateral primary osteoarthritis, left knee (principal); Z11.59 Encounter for screening for other viral diseases; E78.5 Hyperlipidemia, unspecified; Z96.651 Presence of right artificial knee joint; I35.0 Nonrheumatic aortic (valve) stenosis; I11.0 Hypertensive heart disease with heart failure; I50.9 Heart failure, unspecified